=== PATIENT | male | born 1990 ===

== ENCOUNTER 2022-04-28 10:45 | Emergency (ER) | payer OTHER, MEDICAID, SELFPAY ==
[2022-04-28 11:00] VITALS: BP 131/75; PULSE 85; RESP 22; TEMP 36.3; O2SAT 96; BMI 45.9
--- NOTE | 2022-04-28 11:21 | ED.EXTPRO ---
HPI - Extremity Problem General Chief complaint: Extremity Problem,Nontraumatic Stated complaint: Poss infection in toe- take immune suppressants Time Seen by Provider: 04/28/22 11:18 Source: patient Mode of arrival: Ambulatory History of Present Illness HPI Narrative: The patient is a 31-year-old male history of ankylosing spondylitis on immunotherapy presenting today with right little toe pain. He states he had a blister there ruptured a day or so ago. He does not want to get infected. He has no redness or swelling. He has tried multiple bandages is not really working. Related Data Home Medications Medication Instructions Recorded Confirmed ferrous sulfate 325 mg (65 mg ##0 08/18/17 iron) tablet (Iron (ferrous sulfate)) Previous Rx's Medication Instructions Recorded ibuprofen 200 mg tablet 200 mg PO TID #60 tabs 08/21/17 cephalexin 500 mg capsule 500 mg PO BID 7 days #14 caps 04/28/22 Allergies Allergy/AdvReac Type Severity Reaction Status Date / Time No Known Drug Allergies Allergy Verified 04/28/22 11:05 Review of Systems Review of Systems Narrative: GENERAL: Denies chills,fever HEENT: Denies throat pain RESPIRATORY: Denies dyspnea, cough, wheezing CARDIOVASCULAR: Denies chest pain, palpitations GASTROINTESTINAL: Denies nausea, vomiting MUSCULOSKELETAL: Denies extremity pain, injury SKIN: See HPI NEUROLOGIC: Denies weakness, dizziness, headache, numbness 8 point review of systems is negative except for those stated above and HPI Patient History Social History Smoking Status: Current every day smoker Smoking Status: Current every day smoker tobacco type: vaping alcohol intake frequency: holidays/special occasions only Substance Use Type: does not use Exam Initial Vital Signs Initial Vital Signs: Vital Signs Temperature 97.4 F L 04/28/22 11:00 Pulse Rate 85 04/28/22 11:00 Respiratory Rate 22 04/28/22 11:00 Blood Pressure 131/75 04/28/22 11:00 Pulse Oximetry 96 04/28/22 11:00 Oxygen Delivery Method 04/28/22 11:00 GENERAL: Well-appearing, well-nourished and in no acute distress. CARDIOVASCULAR: peripheral pulses in tact, cap refill <2 sec RESPIRATORY: No respiratory distress, speaks in full sentences without difficulty EXTREMITIES: Normal range of motion, no clubbing or edema. Neurovascularly intact NEUROLOGICAL: Cranial nerves II through XII grossly intact. Normal gait and speech. SKIN: Right little toe wound between 4th and 5th toes. No edematous no erythema but it is open. Blister has ruptured Course Vital Signs Vital signs: Vital Signs - 8 hr 04/28/22 11:00 Temperature 97.4 F L Pulse Rate 85 Respiratory Rate 22 Blood Pressure 131/75 Pulse Oximetry 96 Oxygen Delivery Method Room Air MDM - Extremity (Nontraumatic) MDM Narrative Medical decision making narrative: At this time no sign of significant infection. Need barrier between toes. I have placed an appropriate dressing on his toe and given him apply ice. Will start him on Keflex as a precaution due to his immunosuppressed state. Discharge Plan Departure Patient Disposition: Home Clinical Impression: Pain of fifth toe Instructions: DI for Wound Infection Activity Restrictions/Additional Instructions: *You have been diagnosed with little toe wound *What to do: At this time no sign of severe infection. Please keep a barrier between her toes so it is allowed to heal. At night x-ray unwrap it let it dry out. You may apply antibiotic ointment on it 1-2 times daily. *Continue to take medications as directed Keflex 500 mg twice a day for 7 days--> SENT TO [facility] *Follow up with your primary care provider in 2-3 days or call [phone] *Return to ER if you should have increasing redness swelling fever pain or any new, worsening or concerning symptoms Prescriptions: New cephalexin 500 mg capsule 500 mg PO BID 7 Days Qty: 14 0RF No Action ferrous sulfate [Iron (ferrous sulfate)] 325 MG tablet Qty: 0 ibuprofen 200 MG tablet 200 mg PO TID Qty: 60 0RF Visit Report Forms: Patient Portal/API
== END 2022-04-28 11:38 | disposition home or self-care (01) ==
PROVIDERS: Emergency Provider Emergency Medicine; Family Provider Ophthalmology
DX: M79.674 Pain in right toe(s) (principal)
CPT/HCPCS: 99281

== ENCOUNTER → 2022-11-08 14:40 | Outpatient (CLI) | payer OTHER, SELFPAY ==
--- NOTE | 2022-11-08 14:41 | DI.RAD.S_ITS ---
PROCEDURE: XR HAND RT MIN 3V INDICATIONS: Right hand injury TECHNIQUE: 3 views of the hand(s) acquired. COMPARISON: [facility], , HAND 3V LEFT, 03/20/2017, 15:23. [facility], , HAND 3V LEFT, 06/24/2011, 15:26. FINDINGS: Bones: No dislocations. Carpal bones are normally aligned. No suspicious bony lesions. There is a diagonal fracture through the proximal aspect of the 3rd metacarpal bone extending into the articular surface and mildly comminuted but nondisplaced. Soft tissues: No suspicious soft tissue calcifications. IMPRESSION: Proximal 3rd metacarpal articular margin fracture, nondisplaced. Mild comminution. Dictated by: Chris Arias M.D. on 11/08/2022 at 15:27 Approved by: Chris Arias M.D. on 11/08/2022 at 15:28
== END ==
PROVIDERS: Family Provider Ophthalmology; Referring Provider Registered Nurse; Visit Provider Registered Nurse
DX: S62.342A Nondisplaced fracture of base of third metacarpal bone, right hand, initial encounter for closed fracture (principal); M79.641 Pain in right hand; X58.XXXA Exposure to other specified factors, initial encounter
CPT/HCPCS: 73130